=== PATIENT | male | born 1990 | race Caucasian/White ===

== ENCOUNTER 2023-10-06 19:47 | Emergency (ER) | payer SELFPAY ==
[~2023-10-06] VITALS: Ht 165.1 cm; Wt 148.8 kg
[2023-10-06 20:09] VITALS: BP 142/112; PULSE 106; RESP 15; TEMP 97.7; O2SAT 96
[2023-10-06 20:41] LABS: BILIRUBIN,URINE 2+ (NEGATIVE); BLOOD, URINE TRACE-I (NEGATIVE); LEUKOCYTE ESTERASE ,URINE TRACE (NEGATIVE); NITRITE, URINE POSITIVE (NEGATIVE); PROTEIN,URINE 2+ (NEGATIVE); UGLUCOSE 1+ (NEGATIVE); UROBILINOGEN,URINE >=8.0 EU/dL (0.2 - 1)
[2023-10-06 20:42] LABS: APPEARANCE,URINE SLIGHTLY HAZY (CLEAR); COLOR,URINE ORANGE (YELLOW)
[2023-10-06 20:45] LABS: ICTOTEST POSITIVE (NEGATIVE); RBC,URINE 0-5 /HPF (0-5)
[2023-10-06 20:47] LABS: BACTERIA,URINE 1+ /HPF (None Seen)
[2023-10-06 20:48] LABS: MUCUS,URINE None Seen /LPF (None Seen); SQUAMOUS EPITHELIAL CELL,UR 0-3 (FEW) /LPF (0-3 (FEW))
[2023-10-06] MEDS ORDERED: CEFP100T18 PO (21:01)
== END 2023-10-06 21:06 | disposition home or self-care (01) ==
LOC: MED 19:47
DX: N39.0 Urinary tract infection, site not specified (principal); Z79.899 Other long term (current) drug therapy; Z90.49 Acquired absence of other specified parts of digestive tract
CPT/HCPCS: 81001; 87086; 87491; 99283